=== PATIENT | female | born 1985 | race Caucasian/White ===

== ENCOUNTER 2018-04-30 11:12 | Emergency (ER) | payer SELFPAY ==
--- NOTE | 2018-04-30 19:39 | RAD ---
LEFT FOOT THREE VIEWS 04/30/18 No definite fracture was seen. There is no periosteal reaction. There was a little cortical irregular ity at the base of the proximal phalanx of the fourth toe, but this is not definitely a fracture. If it correlates positively with a site of pain, then a followup study in 7 days would be needed to con firm or deny fracture. IMPRESSION: Probably negative study but see comments above regarding the fourth toe. POS: HOME
== END 2018-04-30 11:58 | disposition home or self-care (01) ==
LOC: BURERS 11:12
DX: S92.515A Nondisplaced fracture of proximal phalanx of left lesser toe(s), initial encounter for closed fracture (principal); S30.0XXA Contusion of lower back and pelvis, initial encounter; F17.210 Nicotine dependence, cigarettes, uncomplicated; F41.9 Anxiety disorder, unspecified; W22.8XXA Striking against or struck by other objects, initial encounter